=== PATIENT | female | born 2000 | race Caucasian/White ===

== ENCOUNTER 2023-10-28 14:12 | Emergency (ER) | payer MEDICAID, OTHER ==
[~2023-10-28] VITALS: Ht 180.3 cm; Wt 87.0 kg
[2023-10-28 14:14] VITALS: BP 120/78; PULSE 105; RESP 16; TEMP 97.7; O2SAT 100
[2023-10-28 15:21] LABS: BASOPHILS % 0.4 % (0.0-2.0); DIFFERENTIAL COMMENT 0; EOSINOPHILS % 0.2 % (0.0-5.0); HEMATOCRIT. 35.5 % (36.0-48.0); LYMPHOCYTES % 16.4 % (20.0-50.0); MEAN CORPUSCULAR HEMOGLOBIN 26.9 pg (28.0-32.0); MEAN CORPUSCULAR HGB CONC 33.8 g/dL (31.0-37.0); MEAN CORPUSCULAR VOLUME 79.7 fL (81.0-99.0); MEAN PLATELET VOLUME 9.6 fl (7.4-10.4); MONOCYTES % 8.3 % (2.0-8.0); NEUTROPHILS % 74.7 % (40.0-76.0); PLATELET 229 x1000/uL (130-400); RED BLOOD CELL COUNT 4.45 mill/uL (4.2-5.4); RED CELL DISTRIBUTION WIDTH 15.6 % (11.6-14.6); WHITE BLOOD COUNT 10.5 x1000/uL (4.5-11.0)
[2023-10-28 15:31] LABS: CHLORIDE 100 mEq/L (98-107); POTASSIUM 3.3 mEq/L (3.5-5.1); SODIUM 133 mEq/L (136-145)
[2023-10-28 15:32] LABS: CALCIUM 9.6 mg/dL (8.7-10.4); CARBON DIOXIDE 22 mEq/L (21-32)
[2023-10-28 15:34] LABS: HCG SCREEN POSITIVE
[2023-10-28 15:37] LABS: CREATININE 0.5 mg/dL (0.6-1.0); GLUCOSE 116 mg/dL (70-105); UREA NITROGEN BLOOD 7 mg/dL (9-23)
[2023-10-28 15:50] LABS: B-HCG QUANTITATIVE 18526 mIU/mL (<3)
[2023-10-28 17:43] LABS: CLARITY URINE CLOUDY (CLEAR); COLOR URINE DARK YELLOW (YELLOW); GLUCOSE URINE NEGATIVE (NEGATIVE); KETONES URINE 4+ (NEGATIVE); LEUKOCYTE ESTERASE URINE 1+ (NEGATIVE); NITRITE URINE NEGATIVE (NEGATIVE); OCCULT BLOOD URINE NEGATIVE (NEGATIVE); PROTEIN URINE 1+ (NEGATIVE); SPECIFIC GRAVITY URINE 1.025 (1.005-1.030)
[2023-10-28 17:57] LABS: BACTERIA URINE 2+; RBC URINE 0-2 /hpf (0-2); SQUAMOUS EPITHELIAL CELL URINE 2+ /lpf (RARE/1+)
[2023-10-28 17:58] LABS: MUCUS URINE 2+ /lpf (< = 2+)
[2023-10-28] MEDS ORDERED: CEPH500C2 MT (18:27)
== END 2023-10-28 19:06 | disposition home or self-care (01) ==
LOC: ER 14:47
DX: Z34.92 Encounter for supervision of normal pregnancy, unspecified, second trimester (principal); Z3A.15 15 weeks gestation of pregnancy
CPT/HCPCS: 36415; 76805; 80048; 81003; 81025; 84702; 84703; 85025; 86850; 86900; 99284